=== PATIENT | female | born 1975 ===

== ENCOUNTER 2016-10-24 12:03 | Inpatient (IN) | payer OTHER ==
[2016-10-24] MEDS: HYDROmorphONE/DILAUDID 1 MG/ML SYR IVP PRN (16:03)
[2016-10-24] MEDS ORDERED: ONDANSETRON DISINTEGRATING 4 MG TAB PO PRN (16:33)
[2016-10-24] MEDS ORDERED: HYDROmorphONE/DILAUDID 1 MG/ML SYR IVP PRN (16:33)
[2016-10-24] MEDS ORDERED: ONDANSETRON 4 MG/2 ML VIAL IVP PRN (16:33)
[2016-10-24] MEDS ORDERED: GABAPENTIN 300 MG CAP PO PRN (16:39)
[2016-10-24] MEDS ORDERED: methylPREDNISolone 4 MG TAB PO PRN (16:39)
[2016-10-24] MEDS ORDERED: LACTULOSE 20 GM/30 ML UDCUP PO PRN (16:42)
[2016-10-24] MEDS ORDERED: BISACODYL 10 MG SUPP PR PRN (16:42)
[2016-10-24] MEDS ORDERED: POLYETHYLENE GLYCOL 3350 17 GM PKT PO PRN (16:42)
[2016-10-24] MEDS ORDERED: MAGNESIUM HYDROXIDE 30 ML UDCUP PO PRN (16:42)
[2016-10-24] MEDS ORDERED: HYDROmorphONE/DILAUDID 6 MG/30 ML PCA IV ONE (17:30)
[2016-10-24] MEDS ORDERED: NS W/ 20 KCl/L 1,000 ML IV SCH (17:30)
[2016-10-24] MEDS ORDERED: METOCLOPRAMIDE 10 MG/2 ML VIAL IVP PRN (17:31)
[2016-10-24] MEDS ORDERED: NALOXONE HCL 0.4 MG/ML INJ IVP PRN (17:31)
--- NOTE | 2016-10-24 17:47 | GHP ---
[f rep st] HISTORY AND PHYSICAL DATE OF ADMISSION: 10/24/2016 CHIEF COMPLAINT: Low back pain. HISTORY OF PRESENT ILLNESS: This is a 41-year-old female who had a recent L5-S1 disk rupture with s ignificant back pain, who presents with ongoing back pain. This started in August. MRI then showed significant effacement of the right foramen at L5. She initially underwent conservative therapy inc luding pain control, epidural injections, physical therapy. In the following 8 weeks, she did much better. She additionally had pain down her right leg with some numbness down her leg. The numbness improved significantly. She was also unable to urinate initially which also improved with steroids in the emergency department. Notably she is on vacation here from [place]. Two nights ago, she went to a concert at [facility] a nd then had significant back pain the following day. She presented to the emergency department in [facility], was admitted there overnight. She was then transferred here for neurosurgery consultatio n. When I am seeing her, she tells me the pain is similar in character though more severe than what it has been, stabbing pain down the right leg. She does not have pain in her right thigh, but she does have pain in her right calf. She has numbness which is unchanged in her toes. She feels as th ough she has trouble generating a strong urine stream though she is able to urinate. She feels some what constipated. She still does have motion in her leg though it hurts to move. PAST MEDICAL/SURGICAL HISTORY: 1. Back pain as above. 2. History of hypertension with question of a pheochromocytoma recently diagnosed, being followed b y Endocrinology. 3. History of a carotid artery aneurysm, also being followed. MEDICATIONS: Please see medication reconciliation. ALLERGIES: None. FAMILY HISTORY: Her sister last Thanksgiving of Prader-Willi. SOCIAL HISTORY: She is traveling from [place] with her family. She is accompanied by her . 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 REVIEW OF SYSTEMS: A 10-point review of systems is conducted and is negative except per HPI. PHYSICAL EXAM: VITAL SIGNS: Blood pressure 192/107, heart rate is 100, respiration rate 18, satura ting 94% on room air, temperature is not recorded. GENERAL: The patient is a pleasant female who a ppears quite uncomfortable lying in bed on her back with her right leg propped up. HEENT: Shows he r mucous membranes to be moist. CARDIOVASCULAR: Shows regular rate and rhythm. I hear a very marie t systolic murmur in the right upper sternal border. PULMONARY: Shows mild crackles at bilateral b ases. She is not in any respiratory distress. ABDOMEN: Soft, nontender, nondistended. SKIN: Paty ws no rash. : Shows no Martino. NEUROLOGIC: Shows her to be alert and oriented x3. She has stre ngth intact in the right leg though it is markedly limited by pain. She is numb in her right great toe and 2nd toe. PSYCHIATRIC: She is somewhat tearful. LABS: We have no labs in our system. DATA: 1. I discussed this with Dr. Gamez. He will review MRI and consult. 2. I reviewed her chart from [place]. She was admitted there overnight for pain control, transf erred here for neurosurgery consultation. IMPRESSION/PLAN: A 41-year-old female with intractable pain due to possible disk rupture. 1. L5-S1 known disk rupture with intractable pain: She had an MRI done at [place]; this has not been read yet. Dr. Gamez is currently reviewing these images and will have recommendations follow ing this. For now, we will give her adequate pain control including oral as well as IV. She also h as Robaxin which had been added. I will continue this. We will keep her n.p.o. pending neurosurger y evaluation. Fortunately she does not seem to have any acute neurologic changes. 2. Hypertension, uncontrolled: She does have a history of hypertension which may be, per her repor t, due to pheochromocytoma though she has not undergone imaging. I suspect that the uncontrolled hy pertension now is due to pain. We will continue her home medications and follow this with better pa in control. 3. History of a right carotid artery aneurysm: No neurologic changes right now. We will control h er hypertension. 4. Admission status will be OBS. This is a high risk using IV narcotics to control pain. 5. Venous thromboembolism risk is low. We will place her on THERESA hose as tolerated. /[id number]/MODL
[2016-10-24] MEDS: HYDROmorphONE/DILAUDID 6 MG/30 ML PCA IV PRN (19:01)
[2016-10-24 20:15] LABS: % IMMATURE GRANULYOCYTES 0.7 % (0.0-1.1); ABSOLUTE IMMATURE GRANULOCYTES 0.09 10^3/uL (0.00-0.10); ADD DIFF? NO; ADD MORPH? NO; ADD SCAN? NO; ATYPICAL LYMPHOCYTE FLAG 0 (0-99); FRAGMENT RBC FLAG 0 (0-99); HEMATOCRIT 34.5 % (38.0-47.0); HEMOGLOBIN 11.7 g/dL (12.6-16.3); LEFT SHIFT FLG 0 (0-99); LIPEMIA HEMOLYSIS FLAG 90 (0-99); MEAN CELL HEMOGLOBIN 33.8 pg (27.9-34.1); MEAN CELL HEMOGLOBIN CONCENTR. 33.9 g/dL (32.4-36.7); MEAN CELL VOLUME 99.7 fL (81.5-99.8); MEAN PLATELET VOLUME 9.3 fL (8.7-11.7); PLATELET CLUMPS FLAG 0 (0-99); PLATELET COUNT 344 10^3/uL (150-400); RED BLOOD CELL COUNT 3.46 10^6/uL (4.18-5.33); RED CELL DISTRIBUTION WIDTH 12.2 % (11.5-15.2)
[2016-10-24 20:28] LABS: ANION GAP 12 mEq/L (8-16); CALCIUM 9.3 mg/dL (8.5-10.4); CARBON DIOXIDE 22 mEq/l (22-31); CHLORIDE 103 mEq/L (97-110); CREATININE 0.5 mg/dL (0.6-1.0); GLOMERULAR FILTRATION RATE > 60; GLUCOSE 165 mg/dL (70-100); POTASSIUM 4.1 mEq/L (3.5-5.2); SODIUM 137 mEq/L (134-144)
[2016-10-24] MEDS ORDERED: VERAPAMIL HCL 100 MG PO SCH (21:00)
[2016-10-24] MEDS: SENNOSIDES/DOCUSATE SODIUM TAB PO SCH (21:41)
[2016-10-24] MEDS: METHOCARBAMOL 500 MG TAB PO PRN (21:41)
[2016-10-24] MEDS: ACETAMINOPHEN 325 MG TAB PO PRN (21:42)
[2016-10-24] MEDS: oxyCODONE IR 5 MG TAB PO PRN (21:43)
[2016-10-24] MEDS: GABAPENTIN 300 MG CAP PO SCH (21:43)
[2016-10-24] MEDS: diphenhydrAMINE 25 MG CAP PO PRN (22:25)
--- NOTE | 2016-10-25 03:58 | GCON ---
[f rep st] CONSULTATION DATE OF CONSULTATION: 10/24/2016 CHIEF COMPLAINT: Right lower back pain, right calf pain, and right foot pain. HISTORY OF PRESENT ILLNESS: The patient is a 41-year-old female, who is in [place] on vacation visiting from [place]. 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 She was diagnosed with a herniated disk of the lumbar spine on August 22 when she was in [place]. She has undergone 2 epidural steroid injections, as well as physical therapy, and thought she was getting some benefits. She increased her activity this past Sunday with walking around the [employer], as well as going to a concert at [employer], and her symptoms increased immensely. She was prescribed oral steroids on Sunday. She describes her pain as being in her right lower back, skipping her thigh, and extending down into her right calf region and wrapping around her right foot. She denies any bowel or bladder incontinence, and she denies any saddle anesthesia. REVIEW OF SYSTEMS: See HPI. PAST MEDICAL HISTORY: Patient has a history of a 2 mm right carotid sinus aneurysm, which is followed by a physician in [place]. History of migraines, hypertension. 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 She also has an AC separation in her left shoulder. 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 FAMILY HISTORY: Patient denies any family history of cancer, diabetes, or cardiac disease. 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 She is . She does not smoke. She does not drink alcohol, and she does not do drugs. MEDICATIONS: Gabapentin, which was recently increased to 300 mg 4 times daily; losartan; verapamil; Co-Q 10; fish oil; multivitamin; Motrin 800 mg, her last dose was yesterday; and Tylenol No. 3 as needed. PHYSICAL EXAMINATION: GENERAL: Patient is alert and oriented to person, time, and place. She is lying on the hospital bed with her eyes closed but communicating effectively. LOWER EXTREMITIES: Bilateral quadriceps 5/5. Bilateral hamstrings 5/5. Bilateral tibialis anterior 5/5. Extensor hallucis longus in the right was 3/5. Extensor hallucis longus on the left was 5/5. Sensory is intact to light touch throughout her bilateral lower extremities. BP 156/102 Heart Rate 80 Resp rate 18 O2 sat 95% on room air temp 36.7C DIAGNOSTICS: Patient underwent an MRI of the lumbar spine at [facility] today. MRI of her lumbar spine demonstrates a large right-sided L5-S1 herniated disk protrusion. ASSESSMENT AND PLAN: This patient is a 41-year-old female who is visiting here from [place] who was diagnosed in August with a herniated disk of her lumbar spine. While she has been vacationing, she had increasing symptoms over the weekend and was brought to the hospital today for pain management. She underwent a new MRI of her lumbar spine today which demonstrated a huge right- sided L5-S1 disk herniation, which is probable cause of her right EHL weakness. Due to her extreme pain and right foot weakness, Dr. Gamez will plan to take her to the operating room tomorrow on 10/25/2016. The procedure was explained. Risks were covered. Questions and concerns were answered. We plan to make the patient n.p.o. tomorrow morning at 7am. We will defer to Medicine at this time for pain management. Dr. Gamez saw the patient at the bedside, as well. /[id number]/MODL MTDD
[2016-10-25] MEDS: ACETAMINOPHEN 325 MG TAB PO PRN (05:07)
[2016-10-25] MEDS: GABAPENTIN 300 MG CAP PO SCH ×4 (05:08→21:20)
[2016-10-25] MEDS: oxyCODONE IR 5 MG TAB PO PRN (05:08)
[2016-10-25] MEDS: HYDROmorphONE/DILAUDID 1 MG/ML SYR IVP PRN (06:14)
[2016-10-25] MEDS: HYDROmorphONE/DILAUDID 6 MG/30 ML PCA IV PRN ×2 (07:11→14:16)
--- NOTE | 2016-10-25 07:39 | PDHPUP ---
History & Physical Update H&P update statement: This history and physical update is based on an assessment of the patient which was completed after admission or registration (within 24 hours), but prior to the surgery/procedure. H&P update: H&P reviewed & patient examined, no change in patient's condition since H&P completed
--- NOTE | 2016-10-25 07:43 | NEUSURGPN ---
Assessment/Plan: Assessment: 41 yo female that is here on vacation that presented to the ED with RLE pain and on MRI shows a large right L5/S1 HNP Plan: -large right L5/S1 HNP: plan for surgery today -pt marked -orders in -consents reviewed and signed. Pt understands the risks and need for surgery -PT/OT on hold -pt seen and evaluated by Dr Gamez -red flags reviewed -NPO -call NS with any changes or issues -pt understands and agrees Subjective: Awake and alert. NAD. NPO. No barnard/neck/chest/abd or gu complaints. Objective: AAO x 3, PERRLA/EOMI no droop CN 2-12 grossly intact +lt touch 5/5 BUE/BLE = except right EHL at 3+/4-/5 Neuro Check Frequency: per routine Urinary Catheter in Place: No - Physician Discussed Patient with : Franco Patient Seen by : Franco Neurosurgery Physical Exam - Vitals, I&O, Labs I and O 10/24/16 10/25/16 10/26/16 05:59 05:59 05:59 Intake Total 689 Output Total 200 Balance 489 Weight 75.296 kg Intake: Oral (ml) 200 IV Intake (ml) 489 Output: Urine (ml) 200 Toilet 200 Vital Signs Temp Pulse Resp BP Pulse Ox 36.7 C 77 16 138/85 H 94 10/25/16 04:00 10/25/16 04:00 10/25/16 04:00 10/25/16 04:00 10/25/16 04:00 Laboratory Results 10/24/16 19:45 10/24/16 19:45 ICD10 Worksheet Patient Problems: Problems Problem Status Onset Herniated disc Acute Lumbar stenosis Acute - ICD10 Problem Qualifiers (1) Lumbar stenosis (2) Herniated disc Qualifiers: Spinal region: S Mid-cervical spinal level: M
[2016-10-25] MEDS: LOSARTAN POTASSIUM 50 MG TAB PO SCH (08:38)
[2016-10-25] MEDS: SENNOSIDES/DOCUSATE SODIUM TAB PO SCH ×2 (08:38→21:21)
[2016-10-25] MEDS: diphenhydrAMINE 25 MG CAP PO PRN (08:40)
[2016-10-25] MEDS ORDERED: NON-FORMULARY NEW DRUG (Losartan Potassium [Cozaar] 100 MG) PO SCH (09:00)
--- NOTE | 2016-10-25 10:25 | HOSPPROG ---
Hospitalist Progress Note Assessment/Plan: Patient is a 41-year-old female who presented initially to [facility] with severe back pain. Today is my 1st encounter with the patient. Chart reviewed. Discussed her care with Neurosurgery who plans to take her to surgery later today. 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 Subjective: Aydee is comfortable lying flat with her right leg extended and elevated. Objective: Vital Signs Temp Pulse Resp BP Pulse Ox 37.1 C 83 12 153/90 H 96 10/25/16 09:59 10/25/16 09:59 10/25/16 09:59 10/25/16 09:59 10/25/16 09:59 Laboratory Results 10/24/16 19:45 10/24/16 19:45 10/24/16 10/25/16 10/26/16 05:59 05:59 05:59 Intake Total 689 Output Total 200 Balance 489 - Physical Exam Constitutional: no apparent distress, appears nourished Eyes: PERRL Ears, Nose, Mouth, Throat: hearing normal Cardiovascular: regular rate and rhythym Respiratory: no respiratory distress Gastrointestinal: normoactive bowel sounds Skin: warm Musculoskeletal: muscular tenderness Neurologic: AAOx3 Psychiatric: interacting appropriately ICD10 Worksheet Patient Problems: Problems Problem Status Onset Herniated disc Acute Lumbar stenosis Acute
[2016-10-25] MEDS: METHOCARBAMOL 500 MG TAB PO PRN (11:03)
[2016-10-25] MEDS ORDERED: THROMBIN (BOVINE) 5,000 UNIT VIAL TP ONE (14:12)
[2016-10-25] MEDS ORDERED: BUPIVACAINE/EPI 0.25% 30 ML SDV ONE (14:13)
[2016-10-25] MEDS ORDERED: DEPO METHYLPREDNISOLONE 40 MG/ML SDV ONE (14:14)
[2016-10-25] MEDS ORDERED: BACITRACIN 50,000 UNITS/10 ML SYR IRR ONE (14:14)
--- NOTE | 2016-10-25 17:08 | PDANEPAE ---
ANE History of Present Illness worsening radiculopathy x 5 days ANE Past Medical History - Cardiovascular History Hx Hypertension: Yes Hx Arrhythmias: No Hx Chest Pain: No Hx Coronary Artery / Peripheral Vascular Disease: No Hx CHF / Valvular Disease: No Hx Palpitations: No - Pulmonary History Hx COPD: No Hx Asthma/Reactive Airway Disease: No Hx Recent Upper Respiratory Infection: No Hx Oxygen in Use at Home: No - Endocrine History Hx Diabetes: No Hypothyroid: No Hyperthyroid: No - Renal History Hx Renal Disorders: No - Liver History Hx Hepatic Disorders: No - Neurological & Psychiatric Hx Hx Neurological and Psychiatric Disorders: Yes - Cancer History Hx Cancer: No ANE Review of Systems - Exercise capacity Exercise capacity: >=4 METS - Systems Constitutional: Reports: recent injury EENMT: Reports: no symptoms Cardiac: Reports: no symptoms Respiratory: Reports: no symptoms Gastrointestinal: Reports: no symptoms Genitourinary: Reports: no symptoms Muscolosketal: Reports: no symptoms Skin: Reports: no symptoms Neurological: Reports: paresthesia, weakness (r>l leg weakness) ANE Patient History - Allergies Allergies/Adverse Reactions: No Known Allergies Allergy (Unverified 10/24/16 16:33) - Home Medications Home Medications: Gabapentin [Neurontin 300 MG (*)] 300 mg PO BID PRN 10/24/16 [Last Taken Unknown ] Gabapentin [Neurontin 300 MG (*)] 300 mg PO QID 10/24/16 [Last Taken Unknown] Herbals/Supplements -Info Only 1 ea PO DAILY 10/24/16 [Last Taken Unknown] Ibuprofen [Motrin (*)] 800 mg PO Q4-6PRN PRN 10/24/16 [Last Taken Unknown] Losartan Potassium [Cozaar] 100 mg PO DAILY 10/24/16 [Last Taken Unknown] Methocarbamol [Robaxin 500 mg (*)] 1,000 mg PO TID PRN 10/24/16 [Last Taken Unknown] Verapamil HCl [Verapamil Er Pm] 100 mg PO HS 10/24/16 [Last Taken Unknown] methylPREDNISolone [Medrol 4mg (*)] 4 mg PO AD PRN 10/24/16 [Last Taken 10/22/16 ] - NPO status NPO Since - Liquids (Date): 10/25/16 NPO Since - Liquids (Time): 06:30 NPO Since - Solids (Date): 10/24/16 NPO Since - Solids (Time): 19:00 - Smoking Hx Smoking Status: Never smoked - Alcohol Use Alcohol Use: Occasionally ANE Labs/Vital Signs - Labs Result Diagrams: 10/24/16 19:45 10/24/16 19:45 - Vital Signs Blood Pressure: 179/81 Heart Rate: 67 Respiratory Rate: 12 O2 Sat (%): 96 Height: 167.64 cm Weight: 75.296 kg ANE Physical Exam - Airway Mallampati Score: Class 2 - Pulmonary Pulmonary: no respiratory distress - Cardiovascular Cardiovascular: regular rate and rhythym - ASA Status ASA Status: II ANE Anesthesia Plan Anesthesia Plan: general endotracheal anesthesia
[2016-10-25] MEDS ORDERED: MIDAZOLAM 2 MG/2 ML VIAL IVP ONE (17:10)
[2016-10-25] MEDS ORDERED: LR 1,000 ML IV ONE (17:13)
[2016-10-25] MEDS ORDERED: ceFAZolin 2 GM/DEXTROSE 100 ML IV ONE (17:26)
[2016-10-25] MEDS ORDERED: LIDOCAINE 2% 5 ML SDV ONE (17:34)
[2016-10-25] MEDS ORDERED: ROCURONIUM 50 MG/5 ML VIAL ONE (17:34)
[2016-10-25] MEDS ORDERED: fentaNYL 100 MCG/2 ML INJ ONE ×3 (17:35→19:43)
[2016-10-25] MEDS ORDERED: PROPOFOL 200 MG/20 ML VIAL ONE (17:35)
[2016-10-25] MEDS ORDERED: PROPOFOL/EMULSION 500 MG/50 ML BOTTLE IV ONE (17:48)
[2016-10-25] MEDS ORDERED: DEXAMETHASONE 4 MG/ML VIAL ONE (18:02)
[2016-10-25] MEDS ORDERED: ONDANSETRON 4 MG/2 ML VIAL ONE (18:02)
[2016-10-25] MEDS ORDERED: SUGAMMADEX SODIUM 200 MG/2 ML VIAL IVP ONE (19:13)
[2016-10-25] MEDS ORDERED: HYDROmorphONE/DILAUDID 1 MG/ML SYR IVP PRN (19:14)
[2016-10-25] MEDS ORDERED: PROMETHAZINE HCL 25 MG/ML INJ IVP PRN (19:14)
[2016-10-25] MEDS ORDERED: ONDANSETRON 4 MG/2 ML VIAL IVP PRN (19:14)
[2016-10-25] MEDS ORDERED: ALBUTEROL 3 ML DEYVIAL IH PRN (19:14)
[2016-10-25] MEDS ORDERED: NALOXONE HCL 0.4 MG/ML INJ IVP PRN (19:14)
[2016-10-25] MEDS ORDERED: NS 1,000 ML IV SCH (19:30)
--- NOTE | 2016-10-25 19:40 | SOAPPROG ---
SOAP Progress Note Assessment/Plan: Post Op Visit: S: Awake and alert. NAD. Pt with expected lower back pain O: AFVSS/PERRLA/EOMI no droop CN 2-12 grossly intact +lt touch 5/5 BUE/BLE = except right EHL at 4-/5 CDI A/P: 41 yo female that is s/p right sided L5/S1 ULISES -orders in place -call with any questions or concerns -pt seen by Dr Gamez as well - updated Objective: Vital Signs Temp Pulse Resp BP Pulse Ox 36.4 C 67 12 179/81 H 96 10/25/16 17:10 10/25/16 17:10 10/25/16 17:10 10/25/16 17:10 10/25/16 17:10 Laboratory Results 10/24/16 19:45 10/24/16 19:45 10/24/16 10/25/16 10/26/16 05:59 05:59 05:59 Intake Total 689 Output Total 200 Balance 489 ICD10 Worksheet Patient Problems: Problems Problem Status Onset Herniated disc Acute Lumbar stenosis Acute - ICD10 Problem Qualifiers (1) Lumbar stenosis (2) Herniated disc Qualifiers: Spinal region: S Mid-cervical spinal level: M
[2016-10-25] MEDS: fentaNYL 100 MCG/2 ML INJ IVP PRN ×2 (19:46→20:09)
[2016-10-25] MEDS ORDERED: MEPERIDINE 25 MG/ML SYR ONE (19:57)
[2016-10-25] MEDS ORDERED: MEPERIDINE 25 MG/ML SYR IVP PRN (20:05)
[2016-10-25] MEDS ORDERED: VERAPAMIL HCL 100 MG PO SCH (21:00)
[2016-10-25] MEDS: FAMOTIDINE 20 MG TAB PO SCH (21:20)
--- NOTE | 2016-10-25 22:08 | POSTANESTH ---
Post Anesthetic Evaluation Cardiovascular Status: Normal, Stable Respiratory Status: Normal, Stable Level of Consciousness/Mental Status: Can Participate in Eval Pain Control: Adequate, Prn Tx Ordered Nausea/Vomiting Control: Adequate, Prn Tx Ordered Complications Possibly Related to Anesthesia: None Noted
[2016-10-26 00:29] VITALS: RESP 15
[2016-10-26] MEDS: ACETAMINOPHEN 325 MG TAB PO PRN (02:22)
[2016-10-26] MEDS: oxyCODONE IR 5 MG TAB PO PRN ×2 (02:22→10:22)
[2016-10-26] MEDS: ceFAZolin 2 GM/DEXTROSE 100 ML IV SCH ×2 (02:25→08:55)
[2016-10-26 05:13] LABS: % IMMATURE GRANULYOCYTES 0.3 % (0.0-1.1); ABSOLUTE IMMATURE GRANULOCYTES 0.03 10^3/uL (0.00-0.10); ADD DIFF? NO; ADD MORPH? NO; ADD SCAN? NO; ATYPICAL LYMPHOCYTE FLAG 0 (0-99); FRAGMENT RBC FLAG 0 (0-99); HEMOGLOBIN 10.9 g/dL (12.6-16.3); LEFT SHIFT FLG 0 (0-99); LIPEMIA HEMOLYSIS FLAG 90 (0-99); MEAN CELL HEMOGLOBIN 34.4 pg (27.9-34.1); MEAN CELL HEMOGLOBIN CONCENTR. 34.1 g/dL (32.4-36.7); MEAN CELL VOLUME 100.9 fL (81.5-99.8); MEAN PLATELET VOLUME 9.1 fL (8.7-11.7); PLATELET CLUMPS FLAG 0 (0-99); PLATELET COUNT 275 10^3/uL (150-400); RED BLOOD CELL COUNT 3.17 10^6/uL (4.18-5.33); RED CELL DISTRIBUTION WIDTH 12.2 % (11.5-15.2)
[2016-10-26] MEDS: GABAPENTIN 300 MG CAP PO SCH (05:40)
--- NOTE | 2016-10-26 07:36 | GOP ---
[f rep st] OPERATIVE REPORT DATE OF OPERATION: 10/25/2016 SURGEON: Rafaela Gamez MD COMMERCIAL DRAFTER: Brice Harry PA-C. PREOPERATIVE DIAGNOSIS: Right foot drop, huge right L5-S1 disc extrusion, disc bulge with posterior annular tear at L4-5. POSTOPERATIVE DIAGNOSIS: Right foot drop, huge right L5-S1 disc extrusion, disc bulge with posterio r annular tear at L4-5. PROCEDURE PERFORMED: Right L5-S1 hemilaminotomy, medial facetectomy, and removal of large superior L5-S1 disc extrusion and foraminal disc extrusion (36316), microscope. FINDINGS: ESTIMATED BLOOD LOSS: 10 cc. 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 She is bed ridde n and was admitted to [facility] for pain control and transferred to [facility] for definitive care. An MRI was done demonstrating a huge disc extrusion at L5-S1 with a rostral extrusion of the disc against the L5 root, and causing some lateral recess stenosis for S1. I suggested a microdiskectomy. She did have a foot drop and she has been having a footdrop interm ittently since August of this year. She also had a central annular tear at L4-5 and a bulge at L4-5 as well, but none of this really required any treatment. I suggested a single-level decompression a nd microdiskectomy, and the risk of recurrent disk herniation, nerve injury, continued symptoms, wer e discussed. She understood this may not solve all of her chronic back problems and a more extensiv e surgery could be required to solve these problems. She wanted to proceed despite the risks. DESCRIPTION OF PROCEDURE: Patient was taken to the operating room, placed in supine position. Gene ral anesthesia was begun. She was flipped prone onto the Syed frame. Care was taken to pad all p oints of contact. Her back was sterilely prepped and draped in the usual fashion. A localizing x-r ay was taken. We made a 15 mm incision above the L5-S1 interspace in the midline. The subcutaneous tissue was dissected using Bovie cautery down to the fascia and a subperiosteal dissection was made down the right L5 lamina. A self retaining retractor was placed. A localizing x-ray was taken. Augusto pavon drilled a right L5 hemilaminotomy and worked more rostrally than we typically would. We removed t he ligamentum flavum and decompressed the traversing S1 root and worked our way up toward the L5 ped icle. We swept the thecal sac medially and underneath the thecal sac above the L5-S1 disk was a lar ge free fragment disc extrusion, which we delivered in several large pieces with a blunt tipped diss mia. We were also able to deliver a huge fragment out of the foramen itself, out where the L5 deborah t was, and we were able to pass our ball-tip probe all the way up to the L4-5 disk. We removed all this large free fragment. The thecal sac relaxed nicely. It measured almost 3 cm across x 3 cm acr oss and we did take a picture of it. There was a large disruption in the rostral aspect of the L5-S 1 disk and we worked through this disruption, removed some additional subannular fragments at the L5 -S1 disc itself. We did not radically remove the whole L5-S1 disk, we just simply removed the suban nular fragments that were causing the bulging anulus. We then irrigated the disk space with antibio tic saline solution. We placed some Depo-Medrol in the right S1 root. We irrigated throughout the case with large amounts of antibiotic saline. We closed the incision in multiple layers using Vicry l sutures. A running PDS was placed in the skin itself. There were no complications. COMPLICATIONS: None. /[id number]/MODL
[2016-10-26 08:10] VITALS: BP 154/82
[2016-10-26] MEDS: FAMOTIDINE 20 MG TAB PO SCH (08:54)
[2016-10-26] MEDS: LOSARTAN POTASSIUM 50 MG TAB PO SCH (08:54)
[2016-10-26] MEDS: SENNOSIDES/DOCUSATE SODIUM TAB PO SCH (08:55)
[2016-10-26 10:19] VITALS: PULSE 81; TEMP 98.6; O2SAT 96
[2016-10-26] MEDS: METHOCARBAMOL 500 MG TAB PO PRN (10:22)
--- NOTE | 2016-10-26 10:35 | NEUSURGPN ---
Date of Surgery: 10/25/16 Post Op Day: 1 Assessment/Plan: Assessment: 41 yo female that is s/p right sided L5/S1 ULISES POD #1 Plan: -s/p removal of large right sided HNP -pt may have some continued pain and numbness/tingling due to the size -recommend to continue with gabapentin -PT/OT ordered -no bending or twisting -warning signs given -call with any questions or concerns -pt seen by Dr Gamez as well - and patient updated and appreciative of the care received -ok for dc home if cleared by IM Subjective: Awake and alert. NAD. Eating/drinking and voiding. No f/c/n/v/d. No barnard/neck/ chest/abd or gu complaints. Objective: AFVSS/PERRLA/EOMI no droop CN 2-12 grossly intact +lt touch 5/5 BUE/BLE = except right EHL at 4-/5 CDI Neuro Check Frequency: per routine Urinary Catheter in Place: No - Physician Discussed Patient with DrPatrick: Franco Patient Seen by : Franco Neurosurgery Physical Exam - Vitals, I&O, Labs I and O 10/25/16 10/26/16 10/27/16 05:59 05:59 05:59 Intake Total 689 2218 Output Total 200 610 Balance 489 1608 Weight 75.296 kg 75.296 kg Intake: Oral (ml) 200 IV Intake (ml) 489 1700 IV Infused (ml) 518 Ns 1,000 ml @ 75 mls/hr 418 IV CONT VIET Rx#: [id number] ceFAZolin 2 GM/DEXTROSE 100 100 ml @ 200 mls/hr IV Q8H VIET Rx#:[id number] Output: Urine (ml) 200 600 Toilet 200 600 Estimated Blood Loss (ml) 10 Other: Number of Voids Toilet 1 Vital Signs Temp Pulse Resp BP Pulse Ox 37.0 C 81 15 154/82 H 96 10/26/16 10:00 10/26/16 10:00 10/26/16 10:00 10/26/16 08:54 10/26/16 10:00 Laboratory Results 10/26/16 04:54 10/24/16 19:45 ICD10 Worksheet Patient Problems: Problems Problem Status Onset Herniated disc Acute Lumbar stenosis Acute - ICD10 Problem Qualifiers (1) Lumbar stenosis (2) Herniated disc Qualifiers: Spinal region: S Mid-cervical spinal level: M
--- NOTE | 2016-10-27 01:05 | GDS ---
[f rep st] DISCHARGE SUMMARY DISCHARGE DIAGNOSES: 1. Large right-sided disk herniation at L5-S1. 2. Hypertension. 3. History of known right carotid aneurysm. 4. Leukocytosis. CONSULTATIONS: Neurosurgery. STUDIES AND PROCEDURES DONE: Right-sided L5-S1 ULISES. PHYSICAL EXAMINATION: GENERAL: The patient is alert. VITAL SIGNS: Afebrile at 37, pulse is 81, r espiratory rate 15, blood pressure is 154/82. She is saturating 96% on 3 L, 91% on room air. I hav e seen and evaluated the patient on the day of discharge. HOSPITAL COURSE: The patient is a 41-year-old female, who presented to the hospital after suffering severe back pain. She was evaluated and diagnosed with: 1. Large right-sided disk herniation at L5-S1. During this hospitalization, she received a consult ation from Neurosurgery. Surgical intervention was performed, and the patient is doing well in the postoperative setting. 2. Pain. This is managed with oral pain medication. 3. Hypertension. This is stable. Her home medications have been resumed, and she will follow up o utside the hospital with her primary care provider. 4. Known right carotid aneurysm. Again, she will follow up with her PCP, and home medications have been continued. DISPOSITION: Patient will be discharged home independently. DISCHARGE MEDICATIONS: Please see EMR form. I have provided the patient a prescription for oxycodo ne IR and have educated her with regard to need for a bowel protocol, as well as followup in the out patient setting. Patient is in agreement with this discharge plan. I have discussed the disposition with Dwayne Harry of Neurosurgery, who was also in agreement. I spent greater than 35 minutes in the care, coordinati on, and management of patient's disposition. /[id number]/MODL
[2016-10-28] MEDS ORDERED: ENOXAPARIN 40 MG/0.4 ML SYR SC SCH (09:00)
== END 2016-10-26 11:42 | disposition home or self-care (01) | DRG 520 ==
LOC: F3N 15:18 → OBSVTOIN 19:00 → INTOOBSV 19:00 → OBSVTOIN 10-25 19:34
PROVIDERS: ADMIT Student in an Organized Health Care Education/Training Program; ATTEND Student in an Organized Health Care Education/Training Program
PROC: 01NA0ZZ Release Lumbosacral Plexus, Open Approach (ICD-10-PCS; principal; 2016-10-25 18:30)
PROC: 0SB40ZZ Excision of Lumbosacral Disc, Open Approach (ICD-10-PCS; principal; 2016-10-25 18:30)
DX: M51.17 Intervertebral disc disorders with radiculopathy, lumbosacral region (principal); I10 Essential (primary) hypertension; I72.0 Aneurysm of carotid artery
CPT/HCPCS: 97116-GP; 97161-GP; 97165-GO; G0378; J0690; J1030; J1100; J1170; J2250; J2405; J2704; J3010